=== PATIENT | male | born 1985 | race Caucasian/White ===

== ENCOUNTER 2019-07-22 04:26 | Emergency (ER) | payer MEDICARE ==
[~2019-07-22] VITALS: Ht 198.1 cm; Wt 280.0 kg
[2019-07-22 04:28] VITALS: BP 143/82
== END 2019-07-22 05:17 | disposition home or self-care (01) ==
LOC: ER 04:27
DX: M25.522 Pain in left elbow (principal); R42 Dizziness and giddiness; X50.9XXA Other and unspecified overexertion or strenuous movements or postures, initial encounter; Y93.89 Activity, other specified; Y92.410 Unspecified street and highway as the place of occurrence of the external cause; Y99.8 Other external cause status
CPT/HCPCS: 73080; 99283

== ENCOUNTER 2019-10-14 05:16 | Emergency (ER) | payer MEDICARE ==
[~2019-10-14] VITALS: Ht 198.1 cm; Wt 127.3 kg
[2019-10-14 05:25] VITALS: BP 151/98
[2019-10-14 06:36] LABS: HIV ANTIBODY 1&2 RAPID NON-REACTIVE (Neg)
[2019-10-15 11:38] LABS: HBSAG SCREEN Negative (Negative); HEPATITIS C ANTIBODY <0.1 s/co ratio (0.0-0.9)
== END 2019-10-14 05:57 | disposition home or self-care (01) ==
LOC: ER 05:16
DX: Z77.21 Contact with and (suspected) exposure to potentially hazardous body fluids (principal)
CPT/HCPCS: 36415; 86703; 86706; 86803; 87340; 99283

== ENCOUNTER 2019-11-17 05:18 | Emergency (ER) | payer MEDICARE ==
[~2019-11-17] VITALS: Ht 198.1 cm; Wt 130.0 kg
[2019-11-17 05:19] VITALS: BP 160/101
== END 2019-11-17 05:45 | disposition home or self-care (01) ==
LOC: ER 05:19
DX: S60.414A Abrasion of right ring finger, initial encounter (principal); M79.641 Pain in right hand; X58.XXXA Exposure to other specified factors, initial encounter; Y93.89 Activity, other specified; Y92.89 Other specified places as the place of occurrence of the external cause; Y99.8 Other external cause status
CPT/HCPCS: 73130; 99283

== ENCOUNTER 2020-02-10 18:21 | Emergency (ER) | payer BC, MEDICARE ==
[~2020-02-10] VITALS: Ht 198.1 cm; Wt 135.0 kg
[2020-02-10] MEDS ORDERED: ondansetron/PF 4mg/2ml inj IV ONE (18:30)
[2020-02-10] MEDS ORDERED: propofol 10mg/ml 20ml vial IV ONE (18:30)
[2020-02-10] MEDS ORDERED: morphine 4 MG/ML inj SYRINge IV ONE ×2 (18:30→18:55)
[2020-02-10] MEDS ORDERED: ketorolac trometh. 30mg/ml inj. IV ONE (18:30)
[2020-02-10] MEDS ORDERED: fentaNYL/PF 50MCG/1 ML 2ML syringe IV ONE (19:15)
[2020-02-10] MEDS ORDERED: HYDROmorphone 1 mg/ml syringe IV ONE (19:30)
[2020-02-10] MEDS ORDERED: ONDA4TAB6 PO (19:55)
[2020-02-10] MEDS ORDERED: HYDROcodone/acetaminophen 5mg/325mg tablet PO ONE (19:55)
[2020-02-10] MEDS ORDERED: IBUP-1984 PO (19:55)
[2020-02-10] MEDS ORDERED: HYDR-3965 PO (19:55)
[2020-02-10 20:19] VITALS: BP 120/86
== END 2020-02-10 20:23 | disposition home or self-care (01) ==
LOC: ER 18:21
DX: S93.04XA Dislocation of right ankle joint, initial encounter (principal); S80.212A Abrasion, left knee, initial encounter; M25.571 Pain in right ankle and joints of right foot; Z90.89 Acquired absence of other organs; X58.XXXA Exposure to other specified factors, initial encounter; Y93.39 Activity, other involving climbing, rappelling and jumping off; Y92.89 Other specified places as the place of occurrence of the external cause; Y99.8 Other external cause status
CPT/HCPCS: 27842; 73600; 93005; 94799; 96374; 96375; 99152; 99285; J1170; J1885; J2270; J2405; J3010; 94760; 96376